=== PATIENT | male | born 1990 | race Hispanic/Latino ===

== ENCOUNTER 2021-05-26 23:54 | Emergency (ER) | payer OTHER ==
[~2021-05-26] VITALS: Ht 170.2 cm; Wt 74.8 kg
[2021-05-27 01:25] VITALS: BP 131/80
[2021-05-27] MEDS ORDERED: HYDROCODON-ACE1 EA11 PO (03:06)
== END 2021-05-27 01:25 | disposition home or self-care (01) ==
LOC: FSED 23:58
DX: S62.336A Displaced fracture of neck of fifth metacarpal bone, right hand, initial encounter for closed fracture (principal); W22.09XA Striking against other stationary object, initial encounter; Y92.89 Other specified places as the place of occurrence of the external cause
CPT/HCPCS: 99283

== ENCOUNTER 2021-08-11 19:50 | Emergency (ER) | payer SELFPAY ==
[~2021-08-11] VITALS: Ht 170.2 cm; Wt 74.8 kg
[~2021-08-11 19:50] MED LIST: HYDROCODON-ACE1 EA11 PO
[2021-08-11] MEDS ORDERED: IBUPROFEN IB200 MG PO (20:15)
[2021-08-11] MEDS ORDERED: Clindamycin INJ 150 MG/ML 600 MG Vial ONE (22:05)
[2021-08-11] MEDS ORDERED: CLINDAMYCIN PHOS 300MG/2ML VIAL ONE (22:05)
[2021-08-11] MEDS ORDERED: SODIUM CHLORIDE 0.9% 500ML 500 ML ONE (22:06)
== END 2021-08-11 21:34 | disposition home or self-care (01) ==
LOC: FSED 19:52
DX: M79.641 Pain in right hand (principal); X50.1XXD Overexertion from prolonged static or awkward postures, subsequent encounter; F17.210 Nicotine dependence, cigarettes, uncomplicated
CPT/HCPCS: 99282; J7040